=== PATIENT | male | born 1995 | race Caucasian/White ===

== ENCOUNTER 2024-03-28 18:47 | Emergency (ER) | payer MEDICAID ==
[~2024-03-28] VITALS: Ht 182.9 cm; Wt 113.4 kg
[2024-03-28 19:05] VITALS: BP_SYST 158; PULSE 108; RESP 18; TEMP 98.4; O2SAT 96
[2024-03-28] MEDS ORDERED: LOSA-413 PO (19:35)
[2024-03-28 19:41] VITALS: BP_SYST 150; PULSE 108; RESP 18; TEMP 98.4; O2SAT 96
== END 2024-03-28 19:41 | disposition home or self-care (01) ==
LOC: SED 18:47
DX: I10 Essential (primary) hypertension (principal); Z79.899 Other long term (current) drug therapy
CPT/HCPCS: 93005; 99283